=== PATIENT | female | born 1980 | race African-American/Black ===

== ENCOUNTER 2024-02-19 10:06 | Outpatient (CLI) | payer BC, SELFPAY ==
[2024-02-19 11:35] LABS: HIV 1/2 Ab P24 Ag Result Negative (Negative); Hepatitis B Surface Antigen Negative (Negative)
[2024-02-19 11:52] LABS: Hepatitis C Virus Antibody Negative (Negative)
[2024-02-19 13:36] LABS: Rapid Plasma Reagin Non-Reactive (NonReactive)
== END 2024-02-19 10:07 | disposition home or self-care (01) ==
PROVIDERS: Visit Provider Nurse Practitioner Family
DX: Z11.3 Encounter for screening for infections with a predominantly sexual mode of transmission (principal); Z11.4 Encounter for screening for human immunodeficiency virus [HIV]
CPT/HCPCS: 36415; 86592; 86703; 86803; 87340; G0432

== ENCOUNTER 2024-09-09 09:57 | Outpatient (CLI) | payer BC, SELFPAY ==
--- OUTSIDE RECORDS SUMMARY | 2024-09-09 10:59 | XMS_ITS | Clinical Summary ---
Author Organization [facility] Address [address] [place] [address] Care Team Providers Care Wound Care Nurse Name Role Phone Victorino Castro MD Primary Care Provider [phone] Allergies No known active allergies Medications aspirin 81 mg enteric coated tablet TAKE 1 TABLET BY MOUTH DAILY 90 tablet 1 4 Active nitroglycerin (NITROSTAT) 0.4 mg SL tabletIndication s:Angina Place 1 tablet (0.4 mg total) under the tongue every 5 (five) minutes as needed for chest pain for up to 180 doses 90 tablet 1 4 Active ranolazine ER (RANEXA) 500 mg 12 hr tablet Take 1 tablet (500 mg total) by mouth 2 (two) times a day 60 tablet 5 4 Active metoprolol tartrate (LOPRESSOR) 25 mg immediate release tablet TAKE 1 TABLET(25 MG) BY MOUTH TWICE DAILY 180 tablet 1 4 Active lisinopril-hydro CHLOROthiazide (ZESTORETIC) 20-12.5 mg per tabletIndication s:hypertension Take 1 tablet by mouth daily 90 tablet 1 4 05/13/20 25 Active isosorbide mononitrate ER (IMDUR) 30 mg 24 hr tablet TAKE 1 TABLET(30 MG) BY MOUTH DAILY 90 tablet 1 5 Active atorvastatin (LIPITOR) 40 mg tablet TAKE 1 TABLET(40 MG) BY MOUTH EVERY NIGHT 90 tablet 1 5 Active omeprazole (PriLOSEC) 40 mg capsule TAKE 1 CAPSULE(40 MG) BY MOUTH DAILY 100 capsule 1 5 Active albuterol HFA (PROVENTIL HFA,VENTOLIN HFA,PROAIR HFA) 90 mcg/actuation inhalerIndicatio ns:Exercise-Blanca hannah Bronchospasm Prevention Inhale 2 puffs every 6 (six) hours as needed for wheezing 08/13/19 Discontinu ed(Therapy completed) Ozempic 0.25 mg or 0.5 mg (2 mg/3 mL) pen injector injection INJECT 0.5MG UNDER THE SKIN ONCE WEEKLY 3 mL 5 4 08/13/19 Discontinu ed(Therapy completed) FeroSuL 325 mg (65 mg iron) tablet TAKE 1 TABLET(325 MG) BY MOUTH TWICE DAILY WITH MEALS 200 tablet 1 5 08/13/19 Discontinu ed(Therapy completed) Active Problems Problem Noted Date Diagnosed Date Routine general medical exam ination at a health care facility 08/12/2024 Assessment & Plan (08/12/2024 11:08 AM CDT): Patient uses seatbelt. Encouraged exercise 30 minutes daily 5 days a week. Blood work was ordered. She needs a mammogram and Pap smear. Advised to have eye exam. Gastroesophageal reflux disease without esophagi tis 05/13/2024 Assessment & Plan (08/12/2024 7:26 AM CDT): Controlled on Prilosec Assessment & Plan (05/13/2024 10:45 AM B AND B GANG WORKER): Patient complains of excessive heartburn. We discussed avoiding food that triggers the symptoms. Try not to eat 3 hours before bedtime. Raise the head of the bed. Will start her on Prilosec 40 mg daily for 3 months. Patient will call if she has persistent symptoms. Iron deficiency anemia due to chronic blood loss 08/28/2023 Assessment & Plan (08/12/2024 7:27 AM CDT): Hemoglobin is 14.1. Iron studies are normal. Patient can stop iron Assessment & Plan (05/13/2024 10:45 AM B AND B GANG WORKER): Patient is maintained on iron. She feels tired. Will obtain CBC and iron studies Assessment & Plan (08/28/2023 10:14 AM CDT): Patient with iron deficiency anemia secondary to heavy menstrual cycles. She is on iron daily. Will obtain CBC before next visit Chest pain, unspecified type 02/17/2023 Assessment & Plan (01/10/2024 3:33 PM CDT): Patient with atypical chest pain. Most likely it is secondary to reflux disease. Patient was eating spicy food prior to the episode. She took Pepcid and the pain subsided completely. I told her to avoid food that triggers the symptoms and raise the head of the bed at night and avoid eating 3 hours before bedtime. She will call us back for recurrent symptoms. Presence of drug coated sten t in anterior descending branch of left coronary artery 12/16/2022 Coronary artery disease of n ative artery of [place] heart with stable angina pectoris 12/06/2022 Assessment & Plan (08/12/2024 7:25 AM CDT): Status post stent placement in October 2022. She is on aspirin and Plavix. Followed by the branch account manager Assessment & Plan (05/13/2024 7:36 AM B AND B GANG WORKER): Status post stent placement in October 2022. She is on aspirin and Plavix. Followed by the branch account manager Assessment & Plan (01/10/2024 3:33 PM CDT): Status post stent placement in October 2022. She is on aspirin and Plavix. Followed by the branch account manager Assessment & Plan (08/28/2023 10:11 AM CDT): Status post stent placement in October 2022. She is on aspirin and Plavix. Followed by the branch account manager Essential hypertension, benign 12/06/2022 Assessment & Plan (08/12/2024 7:25 AM CDT): Continue current medications. Discussed low-salt diet. Discussed exercise on regular basis. Will continue to monitor Assessment & Plan (05/13/2024 10:44 AM B AND B GANG WORKER): Blood pressure is high. We will add lisinopril hydrochlorothiazide 20-12.5 mg daily. Continue metoprolol and Hyzaar bed. Discussed low-salt diet. Assessment & Plan (08/28/2023 10:11 AM CDT): Continue current medications. Discussed low-salt diet. Discussed exercise on regular basis. Will continue to monitor Obesity (BMI 30-39.9) 12/06/2022 Assessment & Plan (05/13/2024 7:37 AM B AND B GANG WORKER): BMI Follow-up includes: nutrition counseling. The patient was advised to exercise 5 times a week for 30 minutes each time. We discussed low calorie diet. Discussed lifestyle changes. Assessment & Plan (08/28/2023 10:14 AM CDT): BMI Follow-up includes: nutrition counseling. The patient was advised to exercise 5 times a week for 30 minutes each time. We discussed low calorie diet. Discussed lifestyle changes. Pure hypercholesterolemia 12/06/2022 Assessment & Plan (08/12/2024 7:27 AM CDT): Controlled on current medications. Continue low-fat diet. Will continue to monitor . Assessment & Plan (05/13/2024 7:37 AM B AND B GANG WORKER): Controlled on current medications. Continue low-fat diet. Will continue to monitor . Assessment & Plan (08/28/2023 10:11 AM CDT): Controlled on current medications. Continue low-fat diet. Will continue to monitor . Chest pain 11/13/2022 Type 2 diabetes mellitus wit hout complication, without long-term current use of insulin 11/13/2022 Assessment & Plan (08/12/2024 11:08 AM CDT): Last hemoglobin A1c was 5.2. Patient is out of [facility] because the insurance company refused to cover it. We will continue to monitor diabetes with diet and exercise and we will order another blood work in few months and make recommendations according to that. Advised to have eye exam. Assessment & Plan (05/13/2024 7:37 AM B AND B GANG WORKER): Patient is maintained on Ozempic. Discussed diet and weight loss. Assessment & Plan (08/28/2023 10:12 AM CDT): Patient with history of diabetes mellitus and she is overweight. Advised to have annual eye exam. We will start her on Ozempic 0.25 mg subQ once a week and increase the dose to 0.5 mg subQ once a week and side effects explained to the patient. Discussed the importance of low calorie diet. Obesity, Class II, BMI 35-39.9 11/13/2022 NSTEMI (non-ST elevated myocardial infarction) 0 11/12/2022 Breast mass 08/06/2020 Resolved Problems Problem Noted Date Diagnosed Date Resolved Date Breast pain 08/06/2020 08/06/2020 Encounters Date Type Department Care Team Description 08/15/2024 9:30 AM CDT Office Visit [facility] Cardiology [address] [phone] Yao Shore MD Coronary artery disease of [place] artery of [place] heart with stable angina pectoris (Primary Dx); Essential hypertension, benign; Pure hypercholesterolemia ; Palpitations 08/12/2024 9:15 AM CDT Office Visit [facility] Internal Medicine [address] [place] [phone] Victorino Castro MD Routine general medical examination at a health care facility (Primary Dx); Coronary artery disease of [place] artery of [place] heart with stable angina pectoris; Essential hypertension, benign; Gastroesophageal reflux disease without esophagitis; Iron deficiency anemia due to chronic blood loss; Pure hypercholesterolemia ; Type 2 diabetes mellitus without complication, without long-term current use of insulin (HCC); Breast cancer screening by mammogram 08/08/2024 9:30 AM CDT Lab [facility] [address] [place] [address] Coronary artery disease of [place] artery of [place] heart with stable angina pectoris; Essential hypertension, benign; Pure hypercholesterolemia ; Palpitations 08/08/2024 Results Follow-Up [facility] Cardiology [address] [place] [address] Cyndy Painting RN from Last 3 Months Immunizations Immunization Administration Dates Next Due Influenza, Unspecified 05/13/2024(Deferred: Maxine ent Refused),04/04/2011 Tdap 05/13/2024,10/21/2011 Surgical History Surgery Date Site/Laterality Comments CHOLECYSTECTOMY 05/29/2005 - 05/28/2006 SECTION 2011, 2004 x2 CERVICAL BIOPSY W/ LOOP ELEC TRODE EXCISION 05/29/2018 - 05/28/2019 CARDIAC STENT PLACEMENT 10/27/2022 - 11/25/2022 mid LAD Medical History Medical History Date Comments Obesity Hypertension Dxd 2005-- Pt st ates stopped lisinopril ~2018 Asthma Diabetes mellitus (HCC) Dxd 2004 -- Stopped metformin ~2016 and currently no meds History of COVID-19 +COVID 2019-- Pt denies any sx History of chicken pox Family History Medical History Relation Name Comments Anesthesia problems Father Coronary artery disease Father Breast cancer Maternal Grandmother Hypertension Mother Relation Name Status Comments Father Maternal Grandmother Mother Social History Tobacco Use Types Packs/Day Years Used Date Smoking Tobacco: Never Smokeless Tobacco: Never Tobacco Cessation:Counseling Given: Not Answered Social Connection and Isolat ion Panel [NHANES] Answer Date Recorded In a typical week, how many times do you talk on the phone with family, friends, or neighbors? More than three times a week 11/14/2022 How often do you get togethe r with friends or relatives? More than three times a week 11/14/2022 How often do you attend chur ch or quaker services? More than 4 times per year 11/14/2022 Do you belong to any clubs o r organizations such as holiness groups, unions, fraternal or athletic groups, or school groups? Yes 11/14/2022 How often do you attend meet ings of the clubs or organizations you belong to? More than 4 times per year 11/14/2022 Are you , , di vorced, , never , or living with a partner? 11/14/2022 AUDIT-C Answer Date Recorded Q1: How often do you have a drink containing alc ohol? 2-4 times a month 05/13/2024 Q2: How many drinks containi ng alcohol do you have on a typical day when you are drinking? 1 or 2 05/13/2024 Q3: How often do you have si x or more drinks on one occasion? Never 05/13/2024 Overall Financial Resource Strain (CARDIA) Answe r Date Recorded How hard is it for you to pa y for the very basics like food, housing, medical care, and heating? Not hard at all 11/14/2022 PHQ-2 Answer Date Recorded PHQ-2 Total Score (If total score is 3 or more points, staff should administer the PHQ-9) 0 05/13/2024 Hunger Vital Sign Answer Date Recorded Within the past 12 months, y ou worried that your food would run out before you got the money to buy more. Never true 11/15/19 23 Within the past 12 months, t he food you bought just didn't last and you didn't have money to get more. Never true 11/14/2022 PRAPARE - Transportation Answer Date Re corded In the past 12 months, has l ack of transportation kept you from medical appointments or from getting medications? No 10/27 In the past 12 months, has l ack of transportation kept you from meetings, work, or from getting things needed for daily living? No 11/14/2022 Housing Stability Vital Sign Answer Brant e Recorded In the last 12 months, was t here a time when you were not able to pay the mortgage or rent on time? No 11/14/2022 In the last 12 months, how many places have you lived? 1 11/14/2022 In the last 12 months, was t here a time when you did not have a steady place to sleep or slept in a snf (including now)? No 11/14/2022 Personal Safety Answer Date Recorded Have you ever been in or are you currently in a harmful physical or emotional relationship or is someone making you feel afraid or unsafe? Denies 12/25/2023 Comments No Sex and Gender Information Value Date Recorded Sex Assigned at Not on file Legal Sex Female 6:26 PM B AND B GANG WORKER Gender Identity Female 08/05/2020 11:53 AM B AND B GANG WORKER Sexual Orientation Not on file Obstetrics History Last Filed Vital Signs Vital Sign Reading Time Taken Comments Blood Pressure 110/70 08/15/2024 9:13 AM CDT Pulse 73 08/15/2024 9:13 AM CDT Temperature 36.6 C (97.9 F) 08/12/2024 9:27 AM CDT Respiratory Rate 16 08/12/2024 9:27 AM CDT Oxygen Saturation 98% 08/15/2024 9:13 AM CDT Inhaled Oxygen Concentration - - Weight 83.3 kg (183 lb 11.2 oz) 08/15/2024 9:13 AM CDT Height 154.9 cm (5' 0.98 ) 08/15/2024 9:13 AM CD T Body Mass Index 34.73 08/15/2024 9:13 AM CDT Plan of Treatment Health Maintenance Due Date Last Done Comments Cervical Cancer Screening 1982 Dilated Eye Exam 1982 Hepatitis B Screening 2000 Pneumococcal vaccine <65 (1 of 2 - PCV) 2001 Covid-19 Vaccine ( - season) 2024 11/03/2020, 10/12/2020 Breast Cancer Screening-Mammogram 04/03/2024 04/03/2023 Foot Exam 08/27/2024 08/28/2023 Hemoglobin A1C 11/11/2024 05/13/2024, 12/28, 11/13/2022 eGFR 01/17/2025 01/18/2024, 11/27, 07/02/2023, Additional history exists Albumin Creatinine Ratio, Urine 05/13/2025 05/13/2024, 01/18/2024 Depression Screening 05/13/2025 05/13/2024, 01/10/2024, 08/28/2023 Lipid Panel 08/08/2025 08/08/2024, 12/28, 01/18/2024, Additional history exists Regular Well Visit/Exam 18-64 08/12/2025 08/12/2024 DTaP/Tdap/Td Vaccine (3 - Td or Tdap) 05/13/2034 05/13/2024, 10/21/2011 Influenza Vaccine Discontinued 04/04/2011 Hepatitis C Screening Completed 01/18/2024 HPV Vaccines Aged Out No longer eligi ble based on patient's age to complete this topic Medical Devices Implanted Type Area International Recruiter Device Identifier Shelf Expiration Date Model / Serial / Lot Medtronic Card Vasc Surgery 2.00 X 22mm [place] [facility] Coronary Stent [id number] - [id number] Implanted:Qty: 1 on 11/14/2022 by Yao Shore MD at [facility] Left: Anterior Descending Cornary Artery Medtronic Card Vasc Surgery 10/20/2023 [id number] / / [id number] [employer] Angio-Seal Vip 6fr Closere Device [id number] - [id number] Implanted:Qty: 1 on 11/14/2022 by Yao Shore MD at [facility] Right: Groin [employer] [facility] 05/28/2023 [id number] / / [id number] Procedures Procedure Name Priority Date/Time Associated Diagnosis Comments ECG 12-LEAD Routine 08/15/2024 9:18 AM CDT Coronary artery disease of [place] artery of [place] heart with stable angina pectoris Essential hypertension, benign Pure hypercholesterole jamia Palpitations LIPID PANEL Routine 08/08/2024 9:45 AM CDT Coronary artery disease of [place] artery of [place] heart with stable angina pectoris Essential hypertension, benign Pure hypercholesterole jamia Palpitations HEPATIC FUNCTION PANEL Routine 08/08/2024 9:45 AM CDT Coronary artery disease of [place] artery of [place] heart with stable angina pectoris Essential hypertension, benign Pure hypercholesterole jamia Palpitations HEMOGLOBIN A1C Routine 05/13/2024 9:52 AM B AND B GANG WORKER Type 2 diabetes mellitus without complication, without long-term current use of insulin (HCC) ALBUMIN CREATININE RATIO, URINE Routine 05/13/2024 9:47 AM B AND B GANG WORKER Type 2 diabetes mellitus without complication, without long-term current use of insulin (HCC) HEPATITIS C ANTIBODY Routine 01/18/2024 9:44 AM CDT Encounter for hepatitis C screening test for low risk patient EGFR Routine 01/18/2024 9:44 AM CDT Type 2 diabetes mellitus without complication, without long-term current use of insulin (HCC) SCREENING MAMMOGRAM BILATERAL W BRIAN Schedule Routine, Read Routine (OP Routine) 04/03/2023 3:25 PM B AND B GANG WORKER Screening mammogram, encounter for from Last 3 Months or Most Recently Relevant to Health Maintenance Results * ECG 12 lead (08/15/2024 9:18 AM CDT) Yao Shore MD ECG ORDERABLES Final Resul t * Hepatic function panel (08/08/2024 9:45 AM CDT) Bilirubin, total 0.3 0.1 - 1.2 mg/dL Bilirubin, direct 0.2 0.1 - 0.3 mg/dL [facility] Protein, pl 6.9 6.5 - 8.5 g/dL [facility] Albumin 3.7 3.5 - 5.0 g/dL [facility] Alk phos 90 40 - 130 Units/L [facility] ALT 16 7 - 45 Units/L [facility] AST 18 10 - 45 Units/L [facility] Blood 08/08/2024 9:45 AM CDT 08/08/2024 9:56 AM CDT Yao Shore MD LAB BLOOD ORDERABLES Final Result [facility] [address] [place] [address] * Lipid panel (08/08/2024 9:45 AM CDT) Cholesterol 113 30 - 199 mg/dL Comment: Interpretive Data Ages < or = 19 years Acceptable: <170 mg/dL Borderline high: 170-199 mg/dL High: >or= 200 mg/dL Ages > or = 20 years Desirable: <200 mg/dL Borderline high: 200-239 mg/dL High: >or= 240 mg/dL Literature References: 1. Expert Panel on Integrated Guidelines for Cardiovascular Health and Risk Reduction in Children and Adolescents. Pediatrics 2011;128:S213 2. NCEP Expert Panel. Circulation 2004;110:227 Current Interpretive Data was last revised on 2018. Triglycerides 65 <=149 mg/dL [facility] Comment: Interpretive Data Ages < or = 9 years Acceptable: <75 mg/dL Borderline high: 75-99 mg/dL High: >or= 100 mg/dL Ages 10 to 20 years Acceptable: <90 mg/dL Borderline high: 90-129 mg/dL High: >or= 130 mg/dL Ages > or = 20 years Desirable: <150 mg/dL Borderline high: 150-199 mg/dL High: 200-499 mg/dL Very high: >or= 499 mg/dL Literature References: 1. Expert Panel on Integrated Guidelines for Cardiovascular Health and Risk Reduction in Children and Adolescents. Pediatrics 2011;128:S213 2. NCEP Expert Panel. Circulation 2004;110:227 Current Interpretive Data was last revised on 2018. HDL 52 >=40 mg/dL [facility] Comment: Interpretive Data Ages < or = 19 years Acceptable: >45 mg/dL Borderline low: 40-45 mg/dL Low: <40 mg/dL Ages > or = 20 years Desirable: >or= 60 mg/dL Low: <40 mg/dL Literature References: 1. Expert Panel on Integrated Guidelines for Cardiovascular Health and Risk Reduction in Children and Adolescents. Pediatrics 2011;128:S213 2. NCEP Expert Panel. Circulation 2004;110:227 Current Interpretive Data was last revised on 2018. LDL, calculated 47 <=129 mg/dL [facility] Comment: Interpretive Data Ages < or = 19 years Acceptable: <110 mg/dL Borderline high: 110-129 mg/dL High: >or= 130 mg/dL Ages > or = 20 years Optimal: <100 mg/dL Near optimal: 100-129 mg/dL Borderline high: 130-159 mg/dL High: >160 mg/dL Calculated using the Granados LDL-C estimating equation. This equation was implemented on 2024. Prior to this date LDL-C was estimated using the Friedewald equation. Literature References: 1. Expert Panel on Integrated Guidelines for Cardiovascular Health and Risk Reduction in Children and Adolescents. Pediatrics 2011;128:S213 2. NCEP Expert Panel. Circulation 2004;110:227 3. Darwin M et al. VERONICA Cardiol. 2020 September 26;5(5):540-548. doi: 10.1001/jamacardio.2020.0013 Current Interpretive Data was last revised on 2024. Non-HDL Cholesterol 61 mg/dL [facility] Comment: Interpretive Data Ages < or = 19 years Acceptable: <120 mg/dL Borderline high: 120-144 mg/dL High: >145 mg/dL Ages > or = 20 years When triglycerides are >200 mg/dL, Non-HDL cholesterol is a secondary target of therapy with treatment goals that are 30 mg/dL greater than the LDL cholesterol target. Literature References: 1. Expert Panel on Integrated Guidelines for Cardiovascular Health and Risk Reduction in Children and Adolescents. Pediatrics 2011;128:S213 2. NCEP Expert Panel. Circulation 2004;110:227 Current Interpretive Data was last revised on 2018. Chol/HDL ratio 2 [facility] Blood 08/08/2024 9:45 AM CDT 08/08/2024 9:56 AM CDT Yao Shore MD LAB BLOOD ORDERABLES Final Result [facility] [address] [place] [address] * Hemoglobin A1c (05/13/2024 9:52 AM B AND B GANG WORKER) [facility] Hgb A1C 5.2 4.0 - 5.6 % Estimated Average Glucose 103 mg/dL [facility] Comment: The ADA recommends reporting an estimated Average Glucose (eAG) with all Hemoglobin A1c results using the equation derived from a study of 507 normal and diabetic adults. Minority populations were underrepresented and children were not included. (Diabetes Care 31:3610-2813, 2008). The eAG is not equivalent to a fasting glucose. Blood 05/13/2024 9:52 AM B AND B GANG WORKER 05/13/2024 10:02 AM B AND B GANG WORKER Victorino Castro MD LAB BLOOD ORDERABLES Final Result Performing Organization Address [facility] de Phone Number [facility] [address] [address] * Albumin Creatinine Ratio, Urine (05/13/2024 9:47 AM B AND B GANG WORKER) Albumin Ur 19.4 mg/L Comment: Interpretive Data No reference range established. Current interpretive data was last revised 2018. Creatinine Ur 260.0 mg/dL [facility] Comment: Interpretive Data No reference range established. Current interpretive data was last revised 2018. Albumin Creatinine Ratio, Ur 7 1 - 29 mg/g [facility] Urine 05/13/2024 9:47 AM B AND B GANG WORKER 05/13/2024 10:36 AM B AND B GANG WORKER Victorino Castro MD LAB URINE ORDERABLES Final Result Performing Organization Address [facility] de Phone Number [facility] [address] [place] [address] * eGFR (01/18/2024 9:44 AM CDT) eGFR >90 >=60 mL/min/1. 73 m2 Comment: Interpretive Data Reference Interval Normal >/= 90 mL/min/1.73m2 Mildly decreased* 60 - 89 mL/min/1.73m2 Mildly to moderately decreased 45 - 59 mL/min/1.73m2 Moderately to severely decreased 30 - 44 mL/min/1.73m2 Severely decreased 15 - 29 mL/min/1.73m2 Kidney Failure < 15 mL/min/1.73m2 *Relative to young adult level Estimated glomerular filtration rate is determined by the 2020 CKD-EPI equation recommended by the National Kidney Foundation (A Unifying Approach to GFR Estimation: Recommendations of the NKF-ASK Task Force on Reassessing the Inclusion of Race in Diagnosing Kidney Disease, JASN 2020). The CKD-EPI equation should not be used for patients with unstable renal function and has not been validated in children and those over 70. Current interpretive data was last reviewed 2021. Blood 01/18/2024 9:44 AM CDT 01/18/2024 10:22 AM CDT Victorino Castro MD LAB BLOOD ORDERABLES Final Result Performing Organization Address [facility] Co de Phone Number [facility] [address] [address] * Hepatitis C antibody Blood (01/18/2024 9:44 AM CDT) Hep C Ab Nonreactive Nonreactive Comment: Antibodies to HCV not detected. Does NOT exclude the possibility of recent exposure to HCV. Current interpretive data was last revised on 22 Interpretive Data Nonreactive: Antibodies to HCV not detected. Does NOT exclude the possibility of recent exposure to HCV. Equivocal: Equivocal for HCV antibodies. Supplemental molecular testing will be automatically performed to determine infection status in accordance with current CDC screening recommendations. Reactive: Positive for HCV antibodies. This may represent current or past HCV infection. Supplemental molecular testing will be automatically performed to determine current infection status in accordance with current CDC screening recommendations. Interpretive data was last revised on 2019. Blood 01/18/2024 9:44 AM CDT 01/18/2024 10:22 AM CDT Victorino Castro MD LAB MICROBIOLOGY - GENERAL ORDERABLES Final Result Performing Organization Address [facility] Co de Phone Number [facility] [address] [place] [address] * Screening Mammogram Bilateral W Brian (04/03/2023 3:25 PM B AND B GANG WORKER) Anatomical Region Laterality Modality Breast Bilateral Mammography Narrative 04/04/2023 8:09 AM B AND B GANG WORKER Mammogram Technique: Bilateral Digital Breast Tomosynthesis, Bilateral C-view 2D Screening mammogram. Views obtained: bilateral craniocaudal and bilateral mediolateral oblique. Computer Aided Detection was performed. Mammogram Findings: The present examination has been compared to prior imaging studies performed at [facility] on 07/05/2019, 01/20/2020 and 07/14/2020. The breasts are heterogeneously dense, which may obscure small masses. There is no suspicious abnormality in either breast. Impression: There is no mammographic evidence of malignancy. Annual screening mammography is recommended.If supplemental screening is desired, breast MRI would be recommended in this patient with heterogeneously dense breasts. OVERALL FINAL ASSESSMENT: BI-RADS CATEGORY 1: Negative. Procedure Note Lorrie Urbina MD - 04/04/2023 Mammogram Technique: Bilateral Digital Breast Tomosynthesis, Bilateral C-view 2D Screening mammogram. Views obtained: bilateral craniocaudal and bilateral mediolateral oblique. Computer Aided Detection was performed. Mammogram Findings: The present examination has been compared to prior imaging studies performed at [facility] on 07/05/2019, 01/20/2020and 07/14/2020. The breasts are heterogeneously dense, which may obscure small masses. There is no suspicious abnormality in either breast. Impression: There is no mammographic evidence of malignancy. Annual screening mammography is recommended.If supplemental screening is desired, breast MRI would be recommended in this patient with heterogeneously dense breasts. OVERALL FINAL ASSESSMENT: BI-RADS CATEGORY 1: Negative. us Self Screening Mammogram IMG MAMMO PROCEDURES Fi nal Result from Last 3 Months or Most Recently Relevant to Health Maintenance Insurance [employer] OOS BL CHOICE PRF PPO [place] BLUE ACCESS OOS Advance Directives For more information, please contact: [phone] * Full Code (Latest Code Status on File) Date Activated Date Inactivated Comments 07/01/2023 7:02 PM 07/02/2023 5:54 PM * Full Code Date Activated Date Inactivated Comments 02/17/2023 12:34 PM 02/18/2023 12:22 AM * Full Code Date Activated Date Inactivated Comments 11/13/2022 1:16 AM 11/15/2022 10:36 PM Care Teams Wound Care Nurse Relationship Specialty Start Date End Date Victorino Castro MD [address] [facility] [address] [address] PCP - General Internal Medicine 08/28/23
--- OUTSIDE RECORDS SUMMARY | 2024-09-09 10:59 | XMS_ITS | Clinical Summary ---
Author Organization 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 Gender Identity Not on file Sexual Orientation Not on file Plan of Treatment Health Maintenance Due Date Last Done Comments Hepatitis C Virus (HCV) Screening 1982 TdaP Immunization 1982 Hepatitis B Immunization (1 of 3 - 19+ 3-dose series) 2001 Pap Smear 2003 Cervical Cancer Screening (CCS) 2012 HPV/Cotest 2012 Discussion re Starting/Frequ ency of Mammograms 2022 Influenza Immunization (#1) 2024 SARS-COV-2 Immunization ( season) 2024 Respiratory Syncytial Virus (RSV) Immunization (Adult) (1 - 1-dose 75+ series) 2057 Meningococcal Immunization (ACWY) Aged Out No longer eligible based on patient's age to complete this topic Pneumococcal Immunization Combined Aged Out No longer eligible based on patient's age to complete this topic Rotavirus Immunization Aged Out No lo nger eligible based on patient's age to complete this topic
--- OUTSIDE RECORDS SUMMARY | 2024-09-09 10:59 | XMS_ITS | Encounter Summary ---
Author Organization [facility] Healthcare Address [address] [place] [address] Care Team Providers Care Seafood And Service Meat Manager Name Role Phone Victorino Castro MD Primary Care Provider [phone] Encounter Details Date Type Department Care Team (Late st Contact Info) Description 08/08/2024 Results Follow-Up [facility] Medical Group Cardiology [address] [phone] Cyndy Painting RN Social History Tobacco Use Types Packs/Day Years Used Date Smoking Tobacco: Never Smokeless Tobacco: Never Social Connection and Isolat ion Panel [NHANES] Answer Date Recorded In a typical week, how many times do you talk on the phone with family, friends, or neighbors? More than three times a week 11/14/2022 How often do you get togethe r with friends or relatives? More than three times a week 11/14/2022 How often do you attend chur ch or uatsdin services? More than 4 times per year 11/14/2022 Do you belong to any clubs o r organizations such as hinduism groups, unions, fraternal or athletic groups, or [...] place to sleep or slept in a prison (including now)? No 11/14/2022 Personal Safety Answer Date Recorded Have you ever been in or are you currently in a harmful physical or emotional relationship or is someone making you feel afraid or unsafe? Denies 12/25/2023 Comments No Sex and Gender Information Value Date Recorded Sex Assigned at Not on file Legal Sex Female 6:26 PM SHAPER SET UP OPERATOR Gender Identity Female 08/05/2020 11:53 AM SHAPER SET UP OPERATOR Sexual Orientation Not on file documented as of this encounter Plan of Treatment Not on file documented as of this encounter Visit Diagnoses Not on filedocumented in this encounter Care Teams Seafood And Service Meat Manager Relationship Specialty Start Date End Date Victorino Castro MD [address] [facility] [address] [place] [id number] PCP - General Internal Medicine 08/28/23 documented as of this encounter
--- OUTSIDE RECORDS SUMMARY | 2024-09-09 10:59 | XMS_ITS | Clinical Summary ---
Author Organization [facility] Address [facility] [place] [address] Care Team Providers Care Pull Worker Name Role Phone Tasha Sagastume MD Primary Care Provider [phone] Allergies No known active allergies Medications albuterol sulfate HFA 108 (90 Base) MCG/ACT inhaler Inhale 2 puffs into the lungs. Active ASPIRIN LOW DOSE 81 MG tablet Take 1 tablet (81 mg total) by mouth daily. Active nirmatrelvir & ritonavir 300/100 (PAXLOVID, 300/100,) 20 x 150 MG & 10 x 100MG tablet pack Take TWO nirmatrelvir 150 mg tablet(s) along with ONE ritonavir 100 mg tablet, with all three tablets taken together, twice daily for 5 days. May take with or without food. Swallow tablets whole. Do not chew, break or crush.. 30 tablet 3 Active Social History Tobacco Use Types Packs/Day Years Used Date Smoking Tobacco: Never Smokeless Tobacco: Never Tobacco Cessation:Counseling Given: Not Answered Alcohol Use Standard Drinks/Week Comments Yes 0 (1 standard drink = 0.6 oz pur e alcohol) occasional Comments No Sex and Gender Information Value Date Recorded Sex Assigned at Not on file Legal Sex Female 4:02 PM FIRST DYER Gender Identity Not on file Sexual Orientation Not on file Last Filed Vital Signs Vital Sign Reading Time Taken Comments Blood Pressure 141/77 04/27/2023 10:56 AM FIRST DYER Pulse 92 04/27/2023 10:56 AM FIRST DYER Temperature 36.5 C (97.7 F) 04/27/2023 10:56 AM FIRST DYER Respiratory Rate 20 04/27/2023 10:56 AM FIRST DYER Oxygen Saturation 100% 04/27/2023 10:56 AM FIRST DYER Inhaled Oxygen Concentration - - Weight 89.4 kg (197 lb) 04/27/2023 10:56 AM FIRST DYER Height 160 cm (5' 3 ) 04/27/2023 10:56 AM FIRST DYER Body Mass Index 34.9 04/27/2023 10:56 AM FIRST DYER Plan of Treatment Health Maintenance Due Date Last Done Comments Cervical Cancer Screening Pa p Smear (Age 30 to 64) Every 3 Years 1982 Annual Physical 1985 Hepatitis C 2000 DTaP, Tdap and Td Vaccines ( 1 - Tdap) 2001 Hepatitis B Vaccines (1 of 3 - 19+ 3-dose series) 2001 Cervical Cancer Screening Pa p with HPV Testing (Age 30 to 64) Every 5 Years 2012 Cervical Cancer Screening wi th HPV 2012 Mammogram Screening 2022 COVID-19 Vaccine ( - 2023-2 5 season) 2024 06/07/2021, 11/03/2020, 10/12/2020 HPV Vaccines Aged Out No longer eligi ble based on patient's age to complete this topic Meningococcal B Vaccine Aged Out No l onger eligible based on patient's age to complete this topic Meningococcal Vaccine Aged Out No torrie carol eligible based on patient's age to complete this topic Pneumococcal Vaccine: Pediatrics (0 to 5 Years) and At-Risk Patients (6 to 49 Years) Aged Out No longer eligible b ased on patient's age to complete this topic RSV Immunizations Under 20 Months Aged Out No longer eligible b ased on patient's age to complete this topic Insurance [facility] Care Teams Pull Worker Relationship Specialty Start Date End Date Tasha Sagastume MD [address] [address] PCP - General FAMILY PRACTICE 05/03/19
--- OUTSIDE RECORDS SUMMARY | 2024-09-09 10:59 | XMS_ITS | Referral Summary ---
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 (Primary Dx); Essential hypertension, benign; Pure hypercholesterolemia ; Palpitations 08/12/2024 9:15 AM CDT Office Visit [facility] Medical Group Internal Medicine [address] [place] [phone] Victorino Castro MD Routine general medical examination at a health care facility (Primary Dx); 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; Essential hypertension, benign; Gastroesophageal reflux disease without esophagitis; Iron deficiency anemia due to chronic blood loss; Pure hypercholesterolemia ; Type 2 diabetes mellitus without complication, without long-term current use of insulin (HCC); Breast cancer screening by mammogram 08/08/2024 Results Follow-Up [facility] Cardiology [address] [place] [place] [phone] Cyndy Painting RN 08/08/2024 9:30 AM CDT Lab [facility] Lab [address] [place] [address] 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 We discussed [...] iron Assessment & Plan (05/13/2024 10:45 AM GRAPHIC ART DESIGNER): Patient is maintained on iron. She feels [...] artery disease of n ative artery of kake heart with stable angina pectoris 12/06/2022 Assessment & Plan (08/12/2024 7:25 AM CDT): Status post stent placement in October 2022. She is on aspirin and Plavix. Followed by the superintendent refuse disposal Assessment & Plan (05/13/2024 7:36 AM GRAPHIC ART DESIGNER): Status post stent placement in October 2022. She is on aspirin and Plavix. Followed by the superintendent refuse disposal Assessment & Plan (01/10/2024 3:33 PM CDT): Status post stent placement in October 2022. She is on aspirin and Plavix. Followed by the superintendent refuse disposal Assessment & Plan (08/28/2023 10:11 AM CDT): Status post stent placement in October 2022. She is on aspirin and Plavix. Followed by the superintendent refuse disposal Essential hypertension, benign 12/06/2022 Assessment & Plan (08/12/2024 7:25 AM CDT): Continue current medications. Discussed low-salt diet. Discussed exercise on regular basis. Will continue to monitor Assessment & Plan (05/13/2024 10:44 AM GRAPHIC ART DESIGNER): Blood pressure is high. We will add lisinopril hydrochlorothiazide 20-12.5 mg daily. Continue metoprolol and Hyzaar bed. Discussed low-salt diet. Assessment & Plan (08/28/2023 10:11 AM CDT): Continue current medications. Discussed low-salt diet. Discussed exercise on regular basis. Will continue to monitor Obesity (BMI 30-39.9) 12/06/2022 Assessment & Plan (05/13/2024 7:37 AM GRAPHIC ART DESIGNER): BMI Follow-up includes: nutrition counseling. The patient [...] . Assessment & Plan (05/13/2024 7:37 AM GRAPHIC ART DESIGNER): Controlled on current medications. Continue low-fat diet. [...] A1c was 5.2. Patient is out of Ozempic because the insurance company refused to cover it. We will continue to monitor diabetes with diet and exercise and we will order another blood work in few months and make recommendations according to that. Advised to have eye exam. Assessment & Plan (05/13/2024 7:37 AM GRAPHIC ART DESIGNER): Patient is maintained on Ozempic. Discussed diet [...] Date Resolved Date Breast pain 08/06/2020 08/06/2020 Immunizations Immunization Administration Dates Next Due Influenza, Unspecified 05/13/2024(Deferred: Maxine ent Refused),04/04/2011 Tdap 05/13/2024,10/21/2011 Social History Tobacco Use Types Packs/Day Years [...] often do you attend chur ch or advent services? More than 4 times per year 11/14/2022 Do you belong to any clubs o r organizations such as latter day groups, unions, fraternal or athletic groups, or [...] place to sleep or slept in a jail (including now)? No 11/14/2022 Personal Safety Answer Date Recorded Have you ever been in or are you currently in a harmful physical or emotional relationship or is someone making you feel afraid or unsafe? Denies 12/25/2023 Comments No Sex and Gender Information Value Date Recorded Sex Assigned at Not on file Legal Sex Female 6:26 PM GRAPHIC ART DESIGNER Gender Identity Female 08/05/2020 11:53 AM GRAPHIC ART DESIGNER Sexual Orientation Not on file Last Filed [...] 08/15/2024 9:13 AM CDT Plan of Treatment Not on file Medical Devices Implanted Type Area Golf Coach Device Identifier Shelf Expiration Date Model / Serial / Lot Medtronic Card Vasc Surgery 2.00 X 22mm Yariel [place] [employer] Coronary Stent [id number] - [id number] Implanted:Qty: 1 on 11/14/2022 by Yao Shore MD at [facility] Left: Anterior Descending Cornary Artery Medtronic Card Vasc Surgery 10/20/2023 [id number] / / [id number] [employer] Angio-Seal Vip 6fr Closere Device [id number] - [id number] Implanted:Qty: 1 on 11/14/2022 by Yao Shore MD at [facility] Right: Groin [employer] HQ 05/28/2023 [id number] / / [id number] Procedures Procedure Name Priority Date/Time Associated Diagnosis Comments ECG 12-LEAD Routine 08/15/2024 9:18 AM CDT 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 Essential hypertension, benign Pure hypercholesterole jamia Palpitations LIPID PANEL Routine 08/08/2024 9:45 AM CDT 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 Essential hypertension, benign Pure hypercholesterole jamia Palpitations HEPATIC FUNCTION PANEL Routine 08/08/2024 9:45 AM CDT 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 Essential hypertension, benign Pure hypercholesterole jamia Palpitations HEMOGLOBIN A1C Routine 05/13/2024 9:52 AM GRAPHIC ART DESIGNER Type 2 diabetes mellitus without complication, without long-term current use of insulin (HCC) ALBUMIN CREATININE RATIO, URINE Routine 05/13/2024 9:47 AM GRAPHIC ART DESIGNER Type 2 diabetes mellitus without complication, without [...] Read Routine (OP Routine) 04/03/2023 3:25 PM GRAPHIC ART DESIGNER Screening mammogram, encounter for from Last 3 Months or Most Recently Relevant to Health Maintenance Results * ECG 12 lead (08/15/2024 9:18 AM CDT) Yao Shore MD ECG ORDERABLES Final Resul t * Hepatic function panel (08/08/2024 9:45 AM CDT) Bilirubin, total 0.3 0.1 - 1.2 mg/dL Bilirubin, direct 0.2 0.1 - 0.3 mg/dL [facility] Protein, pl 6.9 6.5 - 8.5 g/dL [facility] Albumin 3.7 3.5 - 5.0 g/dL [facility] Alk phos 90 40 - 130 Units/L [facility] ALT 16 7 - 45 Units/L [facility] AST 18 10 - 45 Units/L [facility] Blood 08/08/2024 9:45 AM CDT 08/08/2024 9:56 AM CDT Yao Shore MD LAB BLOOD ORDERABLES Final Result [facility] [address] [facility] Department [place] [address] * Lipid panel (08/08/2024 9:45 [...] 3. Darwin M et al. VERONICA Cardiol. 2019September 26;5(5):540-548. doi: [email or web address] Current Interpretive Data was [...] Shore MD LAB BLOOD ORDERABLES Final Result Performing Organization Address City/State/[facility] Co de Phone Number [facility] [address] [facility] Department of Laboratories [place], [place] [id number] * Hemoglobin A1c (05/13/2024 9:52 AM GRAPHIC ART DESIGNER) [facility] Signature Hgb A1C 5.2 4.0 - 5.6 % Estimated Average Glucose 103 mg/dL [facility] Comment: The ADA recommends reporting an estimated Average Glucose (eAG) with all Hemoglobin A1c results using the equation derived from a study of 507 normal and diabetic adults. Minority populations were underrepresented and children were not included. (Diabetes Care 31:0271-2225, 2008). The eAG is not equivalent to a fasting glucose. Blood 05/13/2024 9:52 AM GRAPHIC ART DESIGNER 05/13/2024 10:02 AM GRAPHIC ART DESIGNER Victorino Castro MD LAB BLOOD ORDERABLES Final Result Performing Organization Address City/[facility] Co de Phone Number [address] [place] [address] * Albumin Creatinine Ratio, Urine (05/13/2024 9:47 AM GRAPHIC ART DESIGNER) Albumin Ur 19.4 mg/L Comment: Interpretive Data No reference range established. Current interpretive data was last revised 2018. Creatinine Ur 260.0 mg/dL [facility] Comment: Interpretive Data No reference range established. Current interpretive data was last revised 2018. Albumin Creatinine Ratio, Ur 7 1 - 29 mg/g [facility] Urine 05/13/2024 9:47 AM GRAPHIC ART DESIGNER 05/13/2024 10:36 AM GRAPHIC ART DESIGNER Victorino Castro MD LAB URINE ORDERABLES Final Result Performing Organization Address [facility] Co de Phone Number [address] [place] [place] [address] * eGFR (01/18/2024 9:44 AM CDT) Pathologist [facility] eGFR >90 >=60 mL/min/1. 73 m2 Comment: [...] BLOOD ORDERABLES Final Result Performing Organization Address [facility] Co de Phone Number [facility] [address] [place] [address] * Hepatitis C antibody Blood (01/18/2024 9:44 [...] GENERAL ORDERABLES Final Result Performing Organization Address [facility] de Phone Number [facility] [address] [employer] [place] [address] * Screening Mammogram Bilateral W Brian (04/03/2023 3:25 PM GRAPHIC ART DESIGNER) Anatomical Region Laterality Modality Breast Bilateral Mammography Narrative 04/04/2023 8:09 AM GRAPHIC ART DESIGNER Mammogram Technique: Bilateral Digital Breast Tomosynthesis, Bilateral C-view 2D Screening mammogram. Views obtained: bilateral craniocaudal and bilateral mediolateral oblique. Computer Aided Detection was performed. Mammogram Findings: The present examination has been compared to prior imaging studies performed at [facility] on 07/05/2019, 01/20/2020 and 07/14/2020. The breasts [...] compared to prior imaging studies performed at [facility] on 07/05/2019, 01/20/2020and 07/14/2020. The breasts are [...] Most Recently Relevant to Health Maintenance Insurance [employer] OOS BL CHOICE PRF PPO [place] BLUE ACCESS OOS Advance Directives For more information, please contact: [phone] * Full Code (Latest Code Status on File) Date Activated Date Inactivated Comments 07/01/2023 7:02 PM 07/02/2023 5:54 PM * Full Code Date Activated Date Inactivated Comments 02/17/2023 12:34 PM 02/18/2023 12:22 AM * Full Code Date Activated Date Inactivated Comments 11/13/2022 1:16 AM 11/15/2022 10:36 PM Care Teams Enterprise Integration Developer Relationship Specialty Start Date End Date Victorino Castro MD [address] [place] [address] PCP - General Internal Medicine 08/28/23
[2024-09-09 11:15] LABS: HIV 1/2 Ab P24 Ag Result Negative (Negative)
[2024-09-09 11:23] LABS: Hepatitis B Surface Antigen Negative (Negative)
[2024-09-09 11:37] LABS: Syphilis IgG/IgM Antibody Negative (Negative)
[2024-09-09 11:38] LABS: Hepatitis C Virus Antibody Negative (Negative)
== END 2024-09-09 09:58 | disposition home or self-care (01) ==
LOC: ANHLAB 09:59
PROVIDERS: Visit Provider Nurse Practitioner Family
DX: Z11.3 Encounter for screening for infections with a predominantly sexual mode of transmission (principal)
CPT/HCPCS: 36415; 86593; 86703; 86803; 87340; G0432

== ENCOUNTER 2025-03-31 13:49 | Outpatient (CLI) | payer BC, SELFPAY ==
[2025-03-31 15:05] LABS: Syphilis IgG/IgM Antibody Non-Reactive (Nonreactive)
[2025-03-31 15:09] LABS: Hepatitis B Surface Antigen Negative (Negative)
[2025-03-31 15:17] LABS: HIV 1/2 Ab P24 Ag Result Negative (Negative)
== END 2025-03-31 13:50 | disposition home or self-care (01) ==
LOC: ANHLAB 13:50
PROVIDERS: Visit Provider Nurse Practitioner Family
DX: Z11.3 Encounter for screening for infections with a predominantly sexual mode of transmission (principal)
CPT/HCPCS: 36415; 86593; 86703; 86803; 87340; G0432